=== PATIENT | female | born 1995 | race Two or more races ===

== ENCOUNTER 2023-07-16 10:21 | Emergency (ER) | payer MEDICAID, OTHER ==
[~2023-07-16] VITALS: Ht 162.6 cm; Wt 89.9 kg
[2023-07-16 11:05] LABS: Basophils # (auto) 0.1 10 ^3/uL (0-0.2); Basophils % (auto) 0.6 % (0.0-2.0); Hemoglobin 13.5 g/dL (12.2-16.2); Monocytes # (auto) 0.7 10 ^3/uL (0-1.3)
[2023-07-16 11:07] LABS: Eosinophils # (auto) 0.5 10 ^3/uL (0-0.8); Eosinophils % (auto) 3.6 % (0.0-7.0); Hematocrit 41.2 % (36.0-46.0); Lymphocytes # (auto) 2.3 10 ^3/uL (0.4-5.4); Lymphocytes % (auto) 16.1 % (10.0-50.0); Mean Corpuscular Hemoglobin 25.3 pg (28.0-32.0); Mean Corpuscular Hgb Conc. 32.8 g/dL (32.0-36.0); Mean Corpuscular Volume 77.1 fL (80.0-100.0); Monocytes % (auto) 5.2 % (0.0-12.0); Neutrophils # (auto) 10.4 10 ^3/uL (1.6-8.6); Neutrophils % (auto) 74.5 % (37.0-80.0); Nucleated Red Blood Cells % 0.1 %; Red Blood Cells 5.34 10^6/uL (4.0-5.20)
[2023-07-16 11:12] LABS: Alanine Aminotransferase 26 U/L (7-40); Albumin 4.5 g/dL (3.2-4.8); Alkaline Phosphatase 66 U/L (46-116); Anion Gap 10 (5-15); Aspartate Aminotransferase 23 U/L (13-40); Calcium 9.3 mg/dL (8.7-10.4); Carbon Dioxide 23 mmol/L (20-30); Chloride 102 mmol/L (98-107); Glucose 93 mg/dL (74-106); Potassium 3.9 mmol/L (3.5-5.1); Sodium 135 mmol/L (136-145)
[2023-07-16 11:13] LABS: Bilirubin, Total 0.4 mg/dL (0.2-1.0); Total Protein 7.8 g/dL (5.7-8.2)
[2023-07-16 11:15] LABS: INR 1.02 (0.9-1.15); Partial Thromboplastin Time 30.1 SEC (24.5-34.5); Prothrombin Time 10.7 sec (9.3-11.8)
[2023-07-16 11:30] LABS: BUN/Creatinine Ratio 9.1 (10.0-20.0); Blood Urea Nitrogen < 5 mg/dL (9-23)
[2023-07-16 12:57] LABS: Urine Bacteria NONE SEEN /hpf (None Seen); Urine Blood Negative /uL (Negative); Urine Clarity HAZY (Clear); Urine Color Yellow (Yellow); Urine Mucus MODERATE (None Seen); Urine Protein, UAD 1+ (Negative); Urine Specific Gravity 1.031 (1.001-1.035); Urine WBC 4 /hpf (0 - 5)
[2023-07-16] MEDS ORDERED: CEPH250C PO (13:04)
[2023-07-16] MEDS ORDERED: SODIUM CHLORIDE 0.9% 1,000 ML IV ONE (13:15)
[2023-07-16 13:28] VITALS: BP 125/71; PULSE 77; RESP 19; TEMP 98; O2SAT 98
== END 2023-07-16 13:31 | disposition home or self-care (01) ==
LOC: ER 10:21
DX: O23.41 Unspecified infection of urinary tract in pregnancy, first trimester (principal); R10.2 Pelvic and perineal pain; O20.8 Other hemorrhage in early pregnancy; E86.0 Dehydration; N39.0 Urinary tract infection, site not specified; Z3A.10 10 weeks gestation of pregnancy
CPT/HCPCS: 36415; 76801; 80053; 81001; 84702; 85025; 85610; 85730

== ENCOUNTER 2023-10-23 17:35 | Inpatient (IN) | payer MEDICAID ==
[~2023-10-23] VITALS: Ht 162.6 cm; Wt 102.5 kg
[~2023-10-23 17:35] MED LIST: CEPH250C PO
[2023-10-23] MEDS ORDERED: MAGNESIUM SULFATE 100 ML IV ONE (17:59)
[2023-10-23] MEDS ORDERED: AMPICILLIN SOD 2GM INJ 2 GM in SODIUM CHL 0.9% 100 ML IV SCH (18:00)
[2023-10-23] MEDS ORDERED: LACTATED RINGER'S 1,000 ML IV SCH ×2 (18:00)
[2023-10-23] MEDS ORDERED: BETAMETHASONE ACET (30mg/5ml) 5ml Vial 6mg/ml IM ONE (18:00)
[2023-10-23] MEDS ORDERED: BETAMETHASONE ACET (30mg/5ml) 5ml Vial 6mg/ml ONE (18:01)
[2023-10-23] MEDS ORDERED: AMPICILLIN SOD 1 GM VL ONE ×2 (18:03→18:17)
[2023-10-23] MEDS ORDERED: MAGNESIUM SULFATE 40MG/ML 1,000 ML IV ONE ×2 (18:07→18:22)
[2023-10-23] MEDS ORDERED: TERBUTALINE SULFATE 1 MG/ML 1ML VIAL SC ONE (18:15)
[2023-10-23 18:48] LABS: Eosinophils # (auto) 0.6 10 ^3/uL (0-0.8); Lymphocytes % (auto) 9.6 % (10.0-50.0); Mean Corpuscular Volume 81.4 fL (80.0-100.0); Monocytes # (auto) 1.3 10 ^3/uL (0-1.3); Red Cell Distribution Width 14.5 % (11.8-14.3)
[2023-10-23 18:50] LABS: Basophils # (auto) 0 10 ^3/uL (0-0.2); Basophils % (auto) 0.2 % (0.0-2.0); Eosinophils % (auto) 2.4 % (0.0-7.0); Hematocrit 34.9 % (36.0-46.0); Hemoglobin 11.5 g/dL (12.2-16.2); Lymphocytes # (auto) 2.2 10 ^3/uL (0.4-5.4); Mean Corpuscular Hemoglobin 26.7 pg (28.0-32.0); Mean Corpuscular Hgb Conc. 32.8 g/dL (32.0-36.0); Monocytes % (auto) 5.7 % (0.0-12.0); Neutrophils # (auto) 19.3 10 ^3/uL (1.6-8.6); Neutrophils % (auto) 82.1 % (37.0-80.0); Red Blood Cells 4.29 10^6/uL (4.0-5.20); White Blood Cell 23.4 10^3/uL (4.4-10.8)
[2023-10-23 18:55] LABS: Urine Bacteria FEW /hpf (None Seen); Urine Blood Negative /uL (Negative); Urine Clarity Clear (Clear); Urine Color Colorless (Yellow); Urine Protein, UAD Negative (Negative); Urine Specific Gravity 1.004 (1.001-1.035); Urine Urobilinogen Normal (Negative); Urine WBC 1 /hpf (0 - 5)
[2023-10-23 19:01] LABS: Fern Testing Negative
[2023-10-23] MEDS ORDERED: BERACTANT IN NS 25 MG/ML INH 4ML ONE (19:02)
[2023-10-23 19:15] LABS: Amphetamine Screen, Urine Neg (NEGATIVE); Barbiturate Scree,Urine Neg (NEGATIVE); Benzodiazephine Screen, Urine Neg (NEGATIVE); Cocaine Screen, Urine Neg (NEGATIVE)
[2023-10-23 19:16] LABS: Cannabinoid Screen, Urine Neg (NEGATIVE); Opiate Scree,Urine Neg (NEGATIVE); Phencyclidine Screen, Urine Neg (NEGATIVE)
[2023-10-23 19:20] LABS: Alanine Aminotransferase 15 U/L (7-40); Albumin 3.9 g/dL (3.2-4.8); Alkaline Phosphatase 66 U/L (46-116); Anion Gap 12 (5-15); Aspartate Aminotransferase 11 U/L (13-40); Bilirubin, Total 0.2 mg/dL (0.2-1.0); Blood Urea Nitrogen 6 mg/dL (9-23); Carbon Dioxide 22 mmol/L (20-30); Chloride 103 mmol/L (98-107); Glucose 83 mg/dL (74-106); Potassium 3.6 mmol/L (3.5-5.1); Sodium 137 mmol/L (136-145); Total Protein 6.4 g/dL (5.7-8.2)
[2023-10-23] MEDS ORDERED: MIDAZOLAM HCL 2MG/2ML 2ml VIAL (1mg/ml) ONE (19:37)
[2023-10-23] MEDS ORDERED: AZITHROMYCIN DIHYD 500 MG VIAL IV ONE (19:37)
[2023-10-23] MEDS ORDERED: NEOSTIGMINE 1 MG/ML INJ (10mg/10ML VIAL) ONE (19:37)
[2023-10-23] MEDS ORDERED: ETOMIDATE (2MG/ML) 20ML VIAL IV ONE ×2 (19:37→19:39)
[2023-10-23] MEDS ORDERED: SODIUM CHLORIDE LOCK 10 ML ONE (19:37)
[2023-10-23] MEDS ORDERED: ONDANSETRON HCL 4 MG/2 ML VIAL ONE (19:37)
[2023-10-23] MEDS ORDERED: fentaNYL CITRATE 100 MCG/2 ML VL ONE (19:37)
[2023-10-23] MEDS ORDERED: GLYCOPYRROLATE 0.2 MG/ML 1ML VIAL ONE (19:37)
[2023-10-23] MEDS ORDERED: HYDROmorphone HCL 2 MG/ML VL/or syr ONE (19:37)
[2023-10-23] MEDS ORDERED: KETAMINE 50mg/ML 1ml syringe ONE (19:37)
[2023-10-23] MEDS ORDERED: oxyTOCIN 10 UNIT/ML 10ML VIAL ONE (19:42)
[2023-10-23 19:45] VITALS: PULSE 103; RESP 18; O2SAT 95
[2023-10-23] MEDS ORDERED: DOCU-94 PO (19:45)
[2023-10-23] MEDS ORDERED: IBUP-1456 PO (19:45)
[2023-10-23] MEDS ORDERED: HYDR-4902 PO (19:45)
[2023-10-23] MEDS ORDERED: CEPH500T PO (19:45)
[2023-10-23] MEDS ORDERED: LIDOCAINE 2% JELLY 11ml (GLYDO) ONE (19:46)
[2023-10-23 19:56] LABS: INR 0.96 (0.9-1.15); Partial Thromboplastin Time 29.9 SEC (24.5-34.5); Prothrombin Time 10.1 sec (9.3-11.8)
[2023-10-23] MEDS ORDERED: ONDANSETRON HCL 4 MG/2 ML VIAL IV PRN (20:00)
[2023-10-23] MEDS ORDERED: LACT. RINGERS/OXYTOCIN 20UNITS 1,000 ML IV ONE (20:00)
[2023-10-23] MEDS ORDERED: GUM (CHEWING) 1 GUM CHEW CHEW ONE (20:00)
[2023-10-23] MEDS ORDERED: CARBOPROST TROMETHAMINE 250 MCG/1ML VIAL IM ONE (20:10)
[2023-10-23] MEDS ORDERED: METOCLOPRAMIDE HCL 5MG/ml INJ 2ml VIAL IV PRN (21:00)
[2023-10-23] MEDS ORDERED: HYDROmorphone HCL 2 MG/ML VL/or syr IV PRN ×2 (21:00)
[2023-10-23] MEDS ORDERED: MORPHINE SULFATE INJ 2 MG/ml SYRG IV PRN ×2 (21:00→23:00)
[2023-10-23 21:40] VITALS: BP 122/67; PULSE 98; RESP 16; TEMP 98.3; O2SAT 97
[2023-10-23 22:10] VITALS: BP 136/78; PULSE 96; RESP 18; O2SAT 98
[2023-10-23 22:40] VITALS: BP 122/77; PULSE 86; RESP 17; TEMP 97.9; O2SAT 100
[2023-10-23] MEDS ORDERED: KETOROLAC TROMETH 30 MG/ML 1ML VIAL IV PRN (23:00)
[2023-10-23 23:10] VITALS: BP 136/79; PULSE 90; RESP 16; O2SAT 100
[2023-10-23] MEDS: HYDROmorphone HCL 2 MG/ML VL/or syr IV PRN (23:26)
[2023-10-23 23:35] LABS: Hemoglobin 11.9 g/dL (12.2-16.2); Red Cell Distribution Width 14.9 % (11.8-14.3); White Blood Cell 25.5 10^3/uL (4.4-10.8)
[2023-10-23 23:37] LABS: Mean Corpuscular Hemoglobin 26.6 pg (28.0-32.0); Mean Corpuscular Hgb Conc. 32.2 g/dL (32.0-36.0); Mean Corpuscular Volume 82.4 fL (80.0-100.0); Red Blood Cells 4.48 10^6/uL (4.0-5.20)
[2023-10-23 23:43] LABS: Basophils % (manual) 0 (0.0-2.0); Blast Cells 0; Eosinophils % (manual) 0 (0-7); Metamyelocytes % 0; Monocytes % (manual) 0 (0-12); Myelocytes % 0; Promyelocytes % 0; Reactive Lymphocytes 0
[2023-10-24] VITALS (7 sets, daily range): BP systolic 120–134; BP diastolic 70–80; PULSE 86–105; RESP 16–20; TEMP 97.8–99.1; O2SAT 96–99
[2023-10-24] MEDS ORDERED: ACETAMINOPHEN IV 1000 MG/100ML (10MG/ML) IV PRN (01:15)
[2023-10-24 01:35] LABS: Band Neutrophils % (manual) 4; Lymphocytes % (manual) 5 (10.0-50.0)
[2023-10-24 01:36] LABS: Platelet Estimate Adequate
[2023-10-24] MEDS: ceFAZolin 1GM/50ML 50 ML IV SCH ×3 (02:08→12:00)
[2023-10-24] MEDS: HYDROmorphone HCL 2 MG/ML VL/or syr IV PRN ×2 (02:09→03:06)
[2023-10-24 05:35] LABS: Hemoglobin 11.7 g/dL (12.2-16.2)
[2023-10-24 05:36] LABS: Hematocrit 36.1 % (36.0-46.0); Mean Corpuscular Hemoglobin 26.5 pg (28.0-32.0); Mean Corpuscular Hgb Conc. 32.5 g/dL (32.0-36.0); Mean Corpuscular Volume 81.5 fL (80.0-100.0); Red Blood Cells 4.42 10^6/uL (4.0-5.20); Red Cell Distribution Width 14.5 % (11.8-14.3); White Blood Cell 26.5 10^3/uL (4.4-10.8)
[2023-10-24 06:14] LABS: Basophils % (manual) 0 (0.0-2.0); Blast Cells 0; Eosinophils % (manual) 0 (0-7); Metamyelocytes % 0; Myelocytes % 0; Reactive Lymphocytes 0
[2023-10-24 09:01] LABS: Band Neutrophils % (manual) 6; Lymphocytes % (manual) 1 (10.0-50.0); Monocytes % (manual) 2 (0-12); Promyelocytes % 1
[2023-10-24 09:02] LABS: Platelet Estimate Adequate
[2023-10-24] MEDS ORDERED: BISACODYL 10 MG RECT SUPP PR PRN (13:45)
[2023-10-24] MEDS ORDERED: HYDROcodone-ACET 5/325MG TAB PO PRN ×2 (13:45)
[2023-10-24] MEDS ORDERED: IBUPROFEN 800 MG TAB PO PRN (13:45)
[2023-10-24] MEDS ORDERED: SIMETHICONE 80 MG CHEWABLE TABLET PO SCH (18:00)
[2023-10-24] MEDS ORDERED: DOCUSATE SOD 100 MG CAP PO SCH (22:00)
[2023-10-25 03:00] VITALS: BP 120/60; PULSE 88; RESP 16; TEMP 99.1; O2SAT 99
[2023-10-25 07:00] VITALS: BP 135/72; PULSE 90; RESP 18; TEMP 98.4; O2SAT 100
[2023-10-25 07:06] LABS: RPR Non Reactive (Non Reactive)
[2023-10-25 07:30] VITALS: PULSE 90; RESP 16; O2SAT 100
[2023-10-25] MEDS ORDERED: DOCUSATE CALCIUM 240 MG CAP PO SCH (10:00)
[2023-10-28 19:06] LABS: Treponema pallidum Ab (FTA-Ab) Non Reactive (Non Reactive)
== END 2023-10-25 11:21 | disposition home or self-care (01) | DRG 540 ==
LOC: LDRP 17:35 → OBSVTOIN 17:56 → LDRP 23:18
PROVIDERS: ADMIT Obstetrics & Gynecology; ATTEND Obstetrics & Gynecology
PROC: 10D00Z1 Extraction of Products of Conception, Low, Open Approach (ICD-10-PCS; principal; 2023-10-23 19:45)
DX: O16.4 Unspecified maternal hypertension, complicating childbirth (principal); O99.214 Obesity complicating childbirth; E66.01 Morbid (severe) obesity due to excess calories; O99.344 Other mental disorders complicating childbirth; O42.912 Preterm premature rupture of membranes, unspecified as to length of time between rupture and onset of labor, second trimester; O34.219 Maternal care for unspecified type scar from previous cesarean delivery; F43.20 Adjustment disorder, unspecified; Z3A.24 24 weeks gestation of pregnancy; Z37.0 Single live birth
CPT/HCPCS: 36415; 59025; 76805; 80053; 80307; 81001; 83735; 84112; 85007; 85025; 85027; 85610; 85730; 86592; 86850; 86900; 86901; 94760; 94762; 96360; 96361; 96365; 96366; 96372; 96374; 96375; G0378; J0131; J1885; J2250; J2405; J2590